=== PATIENT | female | born 1970 | race African-American/Black ===

== ENCOUNTER 2021-12-21 15:28 | Inpatient (IN) | payer OTHER ==
[2021-12-21] MEDS ORDERED: SODIUM CHLORIDE 0.9% 500 ML INFUS.BAG IV ONE ×2 (15:51→17:22)
[2021-12-21] MEDS ORDERED: morphine CARPU-JECT 4 MG/1 ML DISP.SYRIN IVPUSH ONE (15:52)
[2021-12-21] MEDS ORDERED: morphine SULFATE 4 MG/ML VIAL IVPUSH ONE (15:52)
[2021-12-21] MEDS ORDERED: morphine SULFATE 4 MG/ML VIAL ONE (16:00)
[2021-12-21] MEDS ORDERED: ONDANSETRON 4 MG/2 ML VIAL ONE (16:11)
[2021-12-21] MEDS ORDERED: ONDANSETRON 4 MG/2 ML VIAL IVPUSH ONE (16:16)
[2021-12-21] MEDS ORDERED: ACETAMINOPHEN 1000 MG/100 ML BAG IVPB ONE (16:21)
[2021-12-21 16:42] LABS: BASO % 1.3 % (0-2.0); HEMATOCRIT 52.2 % (32.4-45.2); HEMOGLOBIN 17.6 GM/dL (10.7-15.3); LYMPH % 17.9 % (8-40); MCH 29.3 pg (25.7-33.7); MCHC 33.7 g/dl (32.0-36.0); MEAN PLT VOLUME 8.4 fl (7.5-11.1); MONO % 5.2 % (3.8-10.2); NEUT % 74.6 % (42.8-82.8); PLATELET COUNT 348 10^3/uL (134-434); RDW 13.8 % (11.6-15.6); WHITE BLOOD COUNT 11.5 K/mm3 (4.0-10.0)
[2021-12-21 16:49] LABS: INR 1.15 (0.83-1.09); PROTHROMBIN TIME (PATIENT) 13.3 SEC (9.7-13.0)
[2021-12-21 16:51] LABS: CALCIUM 9.8 mg/dL (8.5-10.1)
[2021-12-21 16:52] LABS: ACTIVATED PTT 33.8 SECONDS (25.2-36.5); ALBUMIN 4.5 g/dl (3.4-5.0)
[2021-12-21 16:54] LABS: CREATININE 0.9 mg/dL (0.55-1.3)
[2021-12-21 16:56] LABS: BILIRUBIN,TOTAL 0.6 mg/dL (0.2-1); TOT PROT 8.5 g/dl (6.4-8.2)
[2021-12-21] MEDS ORDERED: FAMOTIDINE 20 MG/50 ML IVPB 20 MG/50 ML MG IVPB ONE (17:01)
[2021-12-21] MEDS ORDERED: MAG HYDROX/AL HYDROX/SIMETH -MYLANTA- ORAL SUSPENSION PO ONE (17:01)
[2021-12-21] MEDS ORDERED: amLODIPine BESYLATE 5 MG TABLET (FP) PO ONE (17:05)
[2021-12-21] MEDS ORDERED: MAG HYDROX/AL HYDROX/SIMETH 30 ML UNIT-DOSE CUP ONE (17:08)
[2021-12-21] MEDS ORDERED: morphine CARPU-JECT 8 MG/1 ML DISP.SYRIN IVPUSH ONE (19:05)
[2021-12-21] MEDS ORDERED: PIPERACILLIN/TAZOB 4.5 GM 4.5 GM in DEXTROSE 5%-WATER 100 ML IVPB ONE (19:32)
[2021-12-21] MEDS ORDERED: PIPERACILLIN/TAZOB 4.5 GM 4.5 GM/100 ML BAG IVPB ONE (19:33)
[2021-12-21] MEDS ORDERED: DEXTROSE 5%-0.45% SALINE 1,000 ML IV SCH (23:45)
[2021-12-21 23:59] VITALS: BMI 23.5
[2021-12-22] MEDS ORDERED: PIPERACILLIN/TAZOB 4.5 GM 4.5 GM in DEXTROSE 5%-WATER 100 ML IVPB ONE ×3 (00:09→12:00)
[2021-12-22] MEDS ORDERED: LISINOPRIL 20 MG TABLET PO ONE ×2 (00:19→21:00)
[2021-12-22 00:27] LABS: EPI CELLS 3 /uL (0-25.1); HYALINE CASTS 0 /uL (0-3.1); PH,URINE 7.5 (5.0-8.0); URINE APPEARANCE CLEAR; URINE BACTERIA 35 /uL (0-1359); URINE BILIRUBIN NEGATIVE (NEGATIVE); URINE COLOR YELLOW; URINE GLUCOSE (UA) NEGATIVE (NEGATIVE); URINE KETONE NEGATIVE (NEGATIVE); URINE LEUK ESTERASE NEGATIVE (NEGATIVE); URINE NITRITE NEGATIVE (NEGATIVE); URINE PROTEIN NEGATIVE (NEGATIVE); URINE RBC 23 /uL (0-23.9); URINE WBC 0 /uL (0-25.8)
[2021-12-22 09:34] LABS: RBC 4.66 M/mm3 (3.60-5.2); WHITE BLOOD COUNT 8.7 K/mm3 (4.0-10.0)
[2021-12-22 09:35] LABS: HEMATOCRIT 40.9 % (32.4-45.2); HEMOGLOBIN 13.4 GM/dL (10.7-15.3); MCH 28.7 pg (25.7-33.7); MCHC 32.7 g/dl (32.0-36.0); MEAN CELL VOLUME 87.8 fl (80-96); MEAN PLT VOLUME 8.5 fl (7.5-11.1); PLATELET COUNT 282 10^3/uL (134-434); RDW 13.5 % (11.6-15.6)
[2021-12-22 10:02] LABS: BLOOD UREA NITROGEN 6.5 mg/dL (7-18)
[2021-12-22 10:06] LABS: CREATININE 0.8 mg/dL (0.55-1.3); PHOSPHOROUS 3.2 mg/dL (2.5-4.9)
[2021-12-22 10:07] LABS: BILIRUBIN,TOTAL 0.9 mg/dL (0.2-1)
[2021-12-22 10:21] LABS: ALBUMIN 3.2 g/dl (3.4-5.0); CALCIUM 8.3 mg/dL (8.5-10.1); TOT PROT 5.9 g/dl (6.4-8.2)
[2021-12-22] MEDS: ENOXAPARIN NA (PORCINE) 40 MG/0.4 ML DISP.SYRIN SQ SCH (10:29)
[2021-12-22] MEDS: HYDROCHLOROTHIAZIDE 12.5 MG CAPSULE (FP) PO SCH (10:29)
[2021-12-22] MEDS: amLODIPine BESYLATE 5 MG TABLET (FP) PO SCH (10:29)
[2021-12-22] MEDS: ACETAMINOPHEN 1000 MG/100 ML BAG IVPB PRN ×2 (12:04→18:15)
[2021-12-22] MEDS: DEXTROSE 5%-0.45% SALINE 1,000 ML IV SCH (15:28)
[2021-12-22] MEDS: PIPERACILLIN/TAZOB 3.375 GM 3.375 GM in DEXTROSE 5%-WATER - 50 ML IVPB SCH (17:23)
[2021-12-23] MEDS: DEXTROSE 5%-0.45% SALINE 1,000 ML IV SCH ×2 (02:35→15:38)
[2021-12-23] MEDS: PIPERACILLIN/TAZOB 3.375 GM 3.375 GM in DEXTROSE 5%-WATER - 50 ML IVPB SCH ×3 (02:35→18:03)
[2021-12-23 09:37] LABS: BASO % 0.6 % (0-2.0); EOS % 2.5 % (0-4.5); HEMATOCRIT 41.9 % (32.4-45.2); HEMOGLOBIN 14.2 GM/dL (10.7-15.3); LYMPH % 28.6 % (8-40); MCH 29.5 pg (25.7-33.7); MCHC 33.8 g/dl (32.0-36.0); MEAN CELL VOLUME 87.3 fl (80-96); MEAN PLT VOLUME 7.9 fl (7.5-11.1); MONO % 6.1 % (3.8-10.2); NEUT % 62.2 % (42.8-82.8); PLATELET COUNT 277 10^3/uL (134-434); RDW 13.6 % (11.6-15.6); WHITE BLOOD COUNT 6.8 K/mm3 (4.0-10.0)
[2021-12-23] MEDS: HYDROCHLOROTHIAZIDE 12.5 MG CAPSULE (FP) PO SCH (09:37)
[2021-12-23] MEDS: amLODIPine BESYLATE 5 MG TABLET (FP) PO SCH (09:38)
[2021-12-23] MEDS: ENOXAPARIN NA (PORCINE) 40 MG/0.4 ML DISP.SYRIN SQ SCH (09:39)
[2021-12-23 10:02] LABS: ALBUMIN 3.6 g/dl (3.4-5.0); CALCIUM 9.1 mg/dL (8.5-10.1)
[2021-12-23 10:04] LABS: CREATININE 0.9 mg/dL (0.55-1.3)
[2021-12-23 10:05] LABS: BILIRUBIN,TOTAL 0.6 mg/dL (0.2-1); TOT PROT 6.6 g/dl (6.4-8.2)
[2021-12-23 17:43] VITALS: RESP 20
[2021-12-24] MEDS: PIPERACILLIN/TAZOB 3.375 GM 3.375 GM in DEXTROSE 5%-WATER - 50 ML IVPB SCH ×2 (01:29→09:17)
[2021-12-24] MEDS: ENOXAPARIN NA (PORCINE) 40 MG/0.4 ML DISP.SYRIN SQ SCH (09:15)
[2021-12-24] MEDS: HYDROCHLOROTHIAZIDE 12.5 MG CAPSULE (FP) PO SCH (09:15)
[2021-12-24] MEDS: amLODIPine BESYLATE 5 MG TABLET (FP) PO SCH (09:16)
[2021-12-24 09:22] VITALS: BP 161/93; PULSE 71; TEMP 98.6
[2021-12-24 09:23] LABS: BASO % 0.6 % (0-2.0); EOS % 2.8 % (0-4.5); HEMOGLOBIN 14.2 GM/dL (10.7-15.3); LYMPH % 29.4 % (8-40); MCH 28.6 pg (25.7-33.7); MEAN CELL VOLUME 86.7 fl (80-96); MEAN PLT VOLUME 8.3 fl (7.5-11.1); MONO % 8.9 % (3.8-10.2); NEUT % 58.3 % (42.8-82.8); PLATELET COUNT 314 10^3/uL (134-434); RBC 4.96 M/mm3 (3.60-5.2); RDW 13.7 % (11.6-15.6)
[2021-12-24 09:41] LABS: CALCIUM 9.2 mg/dL (8.5-10.1)
[2021-12-24 09:43] LABS: ALBUMIN 3.6 g/dl (3.4-5.0); BLOOD UREA NITROGEN 10.3 mg/dL (7-18); MAGNESIUM 2.2 mg/dL (1.8-2.4)
[2021-12-24 09:45] LABS: CREATININE 0.8 mg/dL (0.55-1.3)
[2021-12-24 09:46] LABS: BILIRUBIN,TOTAL 0.3 mg/dL (0.2-1); TOT PROT 6.9 g/dl (6.4-8.2)
[2021-12-24] MEDS ORDERED: POLYETHYLENE GLYCOL (HEALTHYLAX) 3350 17 GM PACKET PO SCH (10:00)
== END 2021-12-24 11:15 | disposition home or self-care (01) | DRG 244 ==
LOC: JER 15:28 → JERBED 19:45 → J8W 12-22 00:22
PROVIDERS: ADMIT Internal Medicine; ATTEND Nurse Practitioner Acute Care
DX: K57.20 Diverticulitis of large intestine with perforation and abscess without bleeding (principal); I10 Essential (primary) hypertension; F17.210 Nicotine dependence, cigarettes, uncomplicated
CPT/HCPCS: 36415; 71045-TC-FY; 74177-TC; 80053; 81003; 83605; 83735; 84100; 84703; 85025; 85027; 85610; 85730; 86850; 86900; 86901; 87086; 93005; 93010; 99285-25; C9803-CS; Q9967; U0003; U0005

== ENCOUNTER 2022-07-19 13:34 | Emergency (ER) | payer OTHER ==
[2022-07-19 13:42] VITALS: TEMP 98.1; BMI 26.6
[2022-07-19] MEDS ORDERED: amLODIPine BESYLATE 5 MG TABLET (FP) PO ONE (14:16)
[2022-07-19] MEDS ORDERED: amLODIPine BESYLATE 5 MG TABLET (FP) ONE (14:19)
[2022-07-19 14:36] VITALS: RESP 18
[2022-07-19 15:42] LABS: POTASSIUM 4.2 mmol/L (3.5-5.1)
[2022-07-19 15:43] LABS: CALCIUM 9.5 mg/dL (8.5-10.1)
[2022-07-19 15:44] LABS: ALBUMIN 4.1 g/dl (3.4-5.0); BLOOD UREA NITROGEN 9.5 mg/dL (7-18)
[2022-07-19 15:47] LABS: CREATININE 0.8 mg/dL (0.55-1.3)
[2022-07-19 15:48] LABS: BILIRUBIN,TOTAL 0.6 mg/dL (0.2-1)
[2022-07-19 15:49] LABS: TOT PROT 7.6 g/dl (6.4-8.2)
[2022-07-19 15:51] VITALS: BP 189/109; PULSE 88
== END 2022-07-19 17:08 | disposition home or self-care (01) ==
LOC: JER 13:34
DX: I10 Essential (primary) hypertension (principal)
CPT/HCPCS: 36415; 80053; 99283-25